=== PATIENT | female | born 1950 | race Caucasian/White ===

== ENCOUNTER 2019-06-18 20:21 | Emergency (ER) | payer MEDICAID, MEDICARE, SELFPAY ==
[~2019-06-18] VITALS: Ht 157.5 cm; Wt 70.7 kg
[2019-06-18] MEDS ORDERED: PLEASE ENTER ALLERGIES MC SCH (21:00)
[2019-06-18] MEDS ORDERED: SODIUM CHLORIDE FLUSH 10ML SYR IVF ONE (21:00)
[2019-06-18 21:14] LABS: BASOPHILS # (AUTO) 0.03 x10^3/uL (0-0.1); BASOPHILS % (AUTO) 0 % (0-1); EOSINOPHILS # (AUTO) 0.14 x10^3/uL (0-0.4); EOSINOPHILS % (AUTO) 2 % (1-7); LYMPHOCYTES # (AUTO) 3.24 x10^3/uL (1-3.4); LYMPHOCYTES % (AUTO) 39 % (22-44); MD NO; MEAN CORPUSCULAR HEMOGLOBIN 24.8 pg (27.0-34.8); MEAN CORPUSCULAR HGB CONC 32.5 g/dL (32.4-35.8); MEAN CORPUSCULAR VOLUME 76.5 fL (80-100); MEAN PLATELET VOLUME 9.1 fL (7.4-10.4); MONOCYTES # (AUTO) 0.65 x10^3/uL (0.2-0.8); MONOCYTES % (AUTO) 8 % (2-9); NEUTROPHILS # (AUTO) 4.17 x10^3/uL (1.8-6.8); NEUTROPHILS % (AUTO) 51 % (42-75); PLATELET COUNT 283 x10^3/uL (130-400); RED BLOOD COUNT 5.53 x10^6/uL (3.82-5.3); RED CELL DISTRIBUTION WIDTH 14.5 % (9.6-15.2)
--- NOTE | 2019-06-18 21:17 | NUR ---
PT AMBULATED TO RESTROOM WITH STEADY SHUFFLING GAIT TO PROVIDE URINE SAMPLE. UA COLLECTED AND SENT TO LAB.
[2019-06-18 21:22] LABS: ALANINE AMINOTRANSFERASE 45 U/L (12-78); ALBUMIN 3.6 g/dL (3.4-5.0); ANION GAP 9 mmol/L (5-15); CALCIUM 9.3 mg/dL (8.5-10.1); CHLORIDE 110 mmol/L (98-107); CREATININE 2.01 mg/dL (0.55-1.02)
[2019-06-18 21:23] VITALS: BP 168/120
[2019-06-18 21:26] LABS: MICROSCOPIC INDICATED
[2019-06-18 21:26] LABS: ALKALINE PHOSPHATASE 122 U/L (45-117); BILIRUBIN,TOTAL 1.4 mg/dL (0.2-1.0); TOTAL PROTEIN 7.6 g/dL (6.4-8.2); TROPONIN I < 0.015 ng/mL (0.000-0.045)
[2019-06-18 21:35] LABS: CULTURE INDICATED? NO
[2019-06-18] MEDS ORDERED: ONDANSETRON 2MG/ML, 2ML ONE (21:35)
[2019-06-18] MEDS ORDERED: MORPHINE SULFATE 4 MG/ML, 1ML ONE (21:36)
--- NOTE | 2019-06-18 21:41 | NUR ---
MEDS ADMIN PER JUL. PT RESTING COMFORTABLY ON [place]. LUZ MARIA.
[2019-06-18] MEDS ORDERED: ONDANSETRON 2MG/ML, 2ML IVPush ONE (22:00)
[2019-06-18] MEDS ORDERED: MORPHINE SULFATE 4 MG/ML, 1ML IVPush PRN (22:00)
--- NOTE | 2019-06-18 22:23 | NUR ---
PT AT MRI
--- NOTE | 2019-06-18 23:10 | NUR ---
PT BACK FROM MRI.
--- NOTE | 2019-06-18 23:45 | NUR ---
ALL RESULTS ARE BACK AT THIS TIME. CHART UP FOR RECHECK.
== END 2019-06-19 00:12 | disposition home or self-care (01) ==
LOC: ED 23:18
DX: S29.012A Strain of muscle and tendon of back wall of thorax, initial encounter (principal); N28.9 Disorder of kidney and ureter, unspecified; X58.XXXA Exposure to other specified factors, initial encounter; Y93.89 Activity, other specified; Y92.89 Other specified places as the place of occurrence of the external cause; Y99.8 Other external cause status
CPT/HCPCS: 36415; 71045; 72146; 72148; 80053; 81001; 83880; 84484; 85025; 96374; 96375; 99284; J2270; J2405

== ENCOUNTER 2019-06-30 09:45 | Emergency (ER) | payer MEDICAID, MEDICARE, OTHER ==
[~2019-06-30] VITALS: Ht 157.5 cm; Wt 67.0 kg
--- NOTE | 2019-06-30 10:15 | NUR ---
PT AMBULATORY TO ROOM FROM TRIAGE. C/O "BP IS HIGH" PT NOT CURRENTLY ON BP MEDICATIONS. STATES SHE FIRST FOUND OUT HIGH BP WHEN SHE WAS SEEN FOR BACK PAIN. PAIN HAS RESSOLVED BUT HER BP IS STILL RUNNING HIGH. PT ON ALL MONITORS, DR ZARAGOZA AT BEDSIDE. PT ASSESSMENT POC DISCUSSED AND QUESTIONS ANSWERED. SBAR RPT TO BRIANDA CRYSTAL
[2019-06-30] MEDS ORDERED: LABETALOL 5MG/ML, 20ML IVPush ONE (10:30)
[2019-06-30] MEDS ORDERED: LABETALOL 5MG/ML, 20ML ONE (10:35)
--- NOTE | 2019-06-30 10:58 | NUR ---
JAMI ZARAGOZA AT BEDSIDE TO DISCUSS POC
[2019-06-30 11:13] LABS: BASOPHILS # (AUTO) 0.04 x10^3/uL (0-0.1); BASOPHILS % (AUTO) 1 % (0-1); EOSINOPHILS # (AUTO) 0.14 x10^3/uL (0-0.4); EOSINOPHILS % (AUTO) 3 % (1-7); LYMPHOCYTES % (AUTO) 40 % (22-44); MD NO; MEAN CORPUSCULAR HGB CONC 32.2 g/dL (32.4-35.8); MEAN CORPUSCULAR VOLUME 77.5 fL (80-100); MEAN PLATELET VOLUME 8.9 fL (7.4-10.4); MONOCYTES # (AUTO) 0.53 x10^3/uL (0.2-0.8); MONOCYTES % (AUTO) 10 % (2-9); NEUTROPHILS # (AUTO) 2.61 x10^3/uL (1.8-6.8); NEUTROPHILS % (AUTO) 47 % (42-75); PLATELET COUNT 276 x10^3/uL (130-400); RED BLOOD COUNT 5.62 x10^6/uL (3.82-5.3); RED CELL DISTRIBUTION WIDTH 14.4 % (9.6-15.2)
[2019-06-30 11:26] LABS: ALANINE AMINOTRANSFERASE 38 U/L (12-78); ALBUMIN 3.4 g/dL (3.4-5.0); ANION GAP 7 mmol/L (5-15); CALCIUM 8.9 mg/dL (8.5-10.1); CHLORIDE 109 mmol/L (98-107); CREATININE 1.55 mg/dL (0.55-1.02)
[2019-06-30 11:31] LABS: ALKALINE PHOSPHATASE 155 U/L (45-117); BILIRUBIN,TOTAL 0.4 mg/dL (0.2-1.0); TOTAL PROTEIN 7.3 g/dL (6.4-8.2); TROPONIN I < 0.015 ng/mL (0.000-0.045)
[2019-06-30] MEDS ORDERED: SODIUM CHLORIDE 0.9%, 500ML IVBOLUS ONE (12:00)
--- NOTE | 2019-06-30 12:04 | NUR ---
POC DISCUSSES, QUESTIONS ANSWERED. PT RESTING IN BED.
--- NOTE | 2019-06-30 12:34 | NUR ---
DISCHARGE INSTRUCTIONS REVIEWED
[2019-06-30 12:39] VITALS: BP 154/87
== END 2019-06-30 12:58 | disposition home or self-care (01) ==
LOC: ED 10:28
DX: I10 Essential (primary) hypertension (principal); R42 Dizziness and giddiness; F17.200 Nicotine dependence, unspecified, uncomplicated
CPT/HCPCS: 36415; 71045; 80053; 84484; 85025; 93005; 96361; 96374; 99284; J7040

== ENCOUNTER 2019-07-10 11:41 | Emergency (ER) | payer MEDICAID, MEDICARE, OTHER ==
[~2019-07-10] VITALS: Ht 157.5 cm; Wt 98.3 kg
[2019-07-10] MEDS ORDERED: SODIUM CHLORIDE FLUSH 10ML SYR IVF ONE (12:30)
--- NOTE | 2019-07-10 12:31 | NUR ---
PT PRESENTING TO ER FOR HTN, SEEN HERE PRIOR FOR SAME TAKING [place] [facility] HASNT BEEN WORKING. CRUZ X2 DAYS CAUSING VISION TO GET BLURRED. CONNECTED TO ALL MONITORING, HTN NOTED, OTHER VS WNL. CALL LIGHT WITHIN REACH. AWAITING MD ASSESSMENT AND ORDERS
[2019-07-10 12:38] LABS: BASOPHILS # (AUTO) 0.05 x10^3/uL (0-0.1); BASOPHILS % (AUTO) 1 % (0-1); EOSINOPHILS # (AUTO) 0.14 x10^3/uL (0-0.4); EOSINOPHILS % (AUTO) 2 % (1-7); LYMPHOCYTES # (AUTO) 2.66 x10^3/uL (1-3.4); LYMPHOCYTES % (AUTO) 47 % (22-44); MD NO; MEAN CORPUSCULAR HGB CONC 32.2 g/dL (32.4-35.8); MEAN CORPUSCULAR VOLUME 77.6 fL (80-100); MEAN PLATELET VOLUME 9.2 fL (7.4-10.4); MONOCYTES # (AUTO) 0.45 x10^3/uL (0.2-0.8); MONOCYTES % (AUTO) 8 % (2-9); NEUTROPHILS # (AUTO) 2.39 x10^3/uL (1.8-6.8); NEUTROPHILS % (AUTO) 42 % (42-75); PLATELET COUNT 266 x10^3/uL (130-400); RED BLOOD COUNT 5.58 x10^6/uL (3.82-5.3); RED CELL DISTRIBUTION WIDTH 14.9 % (9.6-15.2)
[2019-07-10 12:44] LABS: ALBUMIN 3.4 g/dL (3.4-5.0); ANION GAP 10 mmol/L (5-15); CHLORIDE 109 mmol/L (98-107)
[2019-07-10 12:46] LABS: CREATININE 1.71 mg/dL (0.55-1.02)
[2019-07-10 13:10] VITALS: BP 189/99
--- NOTE | 2019-07-10 13:11 | NUR ---
MD TO BEDSIDE TO DISCUSS POC. PT TO BE DCd [facility] ADDITIONAL BP MEDS
--- NOTE | 2019-07-10 13:46 | NUR ---
Patient given discharge instructions and Rx, they have confirmed that they understand the instructions. Patient ambulatory with steady gait.
== END 2019-07-10 13:42 | disposition home or self-care (01) ==
LOC: ED 13:31
DX: I12.9 Hypertensive chronic kidney disease with stage 1 through stage 4 chronic kidney disease, or unspecified chronic kidney disease (principal); N18.9 Chronic kidney disease, unspecified; R07.89 Other chest pain; I49.3 Ventricular premature depolarization; Z87.891 Personal history of nicotine dependence
CPT/HCPCS: 36415; 71046; 80048; 82040; 85025; 93005; 99285

== ENCOUNTER 2019-07-27 12:57 | Emergency (ER) | payer MEDICAID, MEDICARE ==
[~2019-07-27] VITALS: Ht 157.5 cm; Wt 70.2 kg
[2019-07-27 13:03] VITALS: BP 169/95
== END 2019-07-27 14:06 | disposition home or self-care (01) ==
LOC: ED 13:46
DX: I10 Essential (primary) hypertension (principal); Z76.0 Encounter for issue of repeat prescription; F17.200 Nicotine dependence, unspecified, uncomplicated
CPT/HCPCS: 99283